=== PATIENT | female | born 1980 | race Caucasian/White ===

== ENCOUNTER 2016-12-02 10:01 | Inpatient (IN) | payer OTHER ==
[~2016-12-02] VITALS: Ht 160 cm; Wt 65.0 kg
[~2016-12-02 10:01] MED LIST: MOTRIN 600600 MG/TAB PO; PHENERGAN 25 TA25 MG PO; PRENATAL1 TA7 PO; TYLENOL PM EXTR1 TA1 PO
[2017-02-02] VITALS (39 sets, daily range): BP systolic 90–141; BP diastolic 49–90; PULSE 63–98; TEMP 97.9–98.2
[2017-02-02 07:39] LABS: BASO % 0.3 % (0.0-2.0); EOS # 0.2 (0.0-0.7); EOS % 2.1 % (0-4.0); GRAN % 66.1 % (42.2-75.2); HEMATOCRIT 37.1 % (37.0-47.0); HEMOGLOBIN 12.5 g/dl (12.5-16.0); LYMPH # 1.8 (1.2-3.4); LYMPH % 19.8 % (20.0-51.0); MEAN CELL VOLUME 86 fl (80.0-100.0); MEAN CORPUSCULAR HEMOGLOBIN 29 pg (27.0-31.0); MEAN CORPUSCULAR HGB CONC 34 g/dl (33.0-37.0); MONO % 10.8 % (1.7-9.3); PLATELET COUNT 202 K/mm3 (130-400); RED BLOOD COUNT 4.34 M/mm3 (4.10-5.30); REDCELL DISTRIBUTION WIDTH-CV 12.3 % (11.5-14.5); WHITE BLOOD COUNT 9.1 K/mm3 (4.8-10.8)
[2017-02-03 00:45] VITALS: BP 126/70; PULSE 78; TEMP 98.2
[2017-02-03 04:30] VITALS: BP 108/71; PULSE 67; TEMP 97.9
[2017-02-03 07:00] VITALS: BP 103/65; PULSE 68; TEMP 97.8
[2017-02-03 07:47] LABS: HEMATOCRIT 32.8 % (37.0-47.0); HEMOGLOBIN 11.1 g/dl (12.5-16.0)
[2017-02-03 11:00] VITALS: BP 110/69; PULSE 66; TEMP 98
[2017-02-03] MEDS ORDERED: IBU600 MG PO (12:09)
[2017-02-03 15:10] VITALS: BP 118/73; PULSE 64; TEMP 98.3
== END 2017-02-03 17:10 | disposition home or self-care (01) | DRG 775 ==
LOC: EDSTATUS 10:01 → LDRO 11:17 → LDR 02-02 06:38 → OB 02-02 06:38 → LDR 02-02 10:03 → OB 02-02 17:30
PROVIDERS: Obstetrics & Gynecology
PROC: 10E0XZZ Delivery of Products of Conception, External Approach (ICD-10-PCS; principal; 2017-02-02)
PROC: 3E033VJ Introduction of Other Hormone into Peripheral Vein, Percutaneous Approach (ICD-10-PCS; 2017-02-02)
DX: O48.0 Post-term pregnancy (principal); O09.523 Supervision of elderly multigravida, third trimester; Z3A.40 40 weeks gestation of pregnancy; Z37.0 Single live birth
CPT/HCPCS: J2590; J7120

== ENCOUNTER → 2020-09-19 | Outpatient (CLI) | payer OTHER ==
[~2020-09-19] MED LIST changes: +IBU600 MG PO
== END ==
LOC: MC.RAD 12:44
DX: Z12.31 Encounter for screening mammogram for malignant neoplasm of breast (principal); N64.4 Mastodynia

== ENCOUNTER 2022-01-24 19:10 | Emergency (ER) | payer OTHER ==
[~2022-01-24] VITALS: Ht 162.6 cm; Wt 47.7 kg
[2022-01-24 19:17] VITALS: TEMP 99.8
[2022-01-24 19:57] LABS: BASO # 0.1 K/mm3 (0.0-0.2); BASO % 0.4 % (0.0-2.0); EOS # 0.1 K/mm3 (0.0-0.7); EOS % 0.5 % (0.0-4.0); GRAN # 10.4 K/mm3 (1.4-6.5); GRAN % 85.2 % (42.2-75.2); HEMATOCRIT 43.2 % (37.0-47.0); HEMOGLOBIN 15.4 g/dl (12.5-16.0); LYMPH # 0.7 K/mm3 (1.2-3.4); LYMPH % 5.8 % (20.0-51.0); MEAN CELL VOLUME 82 fl (80.0-100.0); MEAN CORPUSCULAR HEMOGLOBIN 29 pg (27-31); MEAN CORPUSCULAR HGB CONC 36 g/dl (33.0-37.0); MONO % 7.9 % (1.7-9.3); PLATELET COUNT 288 K/mm3 (130-400); RED BLOOD COUNT 5.26 M/mm3 (4.10-5.30); REDCELL DISTRIBUTION WIDTH-CV 11.9 % (11.5-14.5)
[2022-01-24 20:05] LABS: ALANINE AMINOTRANSFERASE 17 U/L (0-55); ALBUMIN 4.7 gm/dL (3.5-5.0); ALKALINE PHOSPHATASE 56 U/L (40-150); ANION GAP 16 mmol/L (7-16); AST,SGOT 21 U/L (5-34); BILIRUBIN,TOTAL 1.1 mg/dL (0.2-1.2); BLOOD UREA NITROGEN 14 mg/dL (7-19); CARBON DIOXIDE 25 mmol/L (22-29); CHLORIDE 97 mmol/L (98-107); CREATININE, serum 0.96 mg/dL (0.57-1.11); GLUCOSE 103 mg/dL (70-99); LIPASE 25 U/L (8-78); SODIUM 138 mmol/L (136-145); TOTAL PROTEIN 8.4 gm/dL (6.2-8.1)
[2022-01-24 20:09] LABS: POTASSIUM 2.9 mmol/L (3.5-4.5)
[2022-01-24 20:17] LABS: TROPONIN-I < 0.010 ng/mL (0.00-0.033)
[2022-01-24 21:41] LABS: COLLECTION METHOD CLEAN CATCH
[2022-01-24 21:50] LABS: PH 8 (5-8); SQUAMOUS EPITHELIAL 0-2 /hpf (0-10); URINE APPEARANCE Clear (CLEAR/HAZY); URINE BACTERIA Rare /hpf (NONE SEEN); URINE BILIRUBIN Negative (NEGATIVE); URINE BLOOD 1+ (NEGATIVE); URINE COLOR Straw (YELLOW); URINE GLUCOSE Negative (NEGATIVE); URINE KETONE 1+ (NEGATIVE); URINE LEUKOCYTE ESTERASE Negative (NEGATIVE); URINE NITRATE Negative (NEGATIVE); URINE PROTEIN(semi-quant) Negative (NEGATIVE); URINE UROBILINOGEN Negative (NEGATIVE)
[2022-01-24] MEDS ORDERED: ZOFRAN ODT4 MG PO ×2 (22:21→22:22)
[2022-01-24 22:37] VITALS: BP 165/103; PULSE 89
== END 2022-01-24 22:48 | disposition home or self-care (01) ==
LOC: COL.ER 19:10
PROVIDERS: Nurse Practitioner Family
DX: A08.4 Viral intestinal infection, unspecified (principal); E87.6 Hypokalemia; R03.0 Elevated blood-pressure reading, without diagnosis of hypertension; Z20.822 Contact with and (suspected) exposure to COVID-19
CPT/HCPCS: J1885; J2405; J3480; J7030